=== PATIENT | female | born 2000 | race Two or more races ===

== ENCOUNTER 2024-10-04 15:59 | Emergency (ER) | payer MEDICAID, SELFPAY ==
[2024-10-04 16:00] VITALS: BMI 31.1
[2024-10-04 16:24] VITALS: BP 105/71; PULSE 100; RESP 19; TEMP 37.4; O2SAT 100
--- NOTE | 2024-10-04 16:26 | XR_ITS ---
Examination: Abdomen sonogram, Limited Date and time of exam: October 04, 2024 1711 hours INDICATIONS: Epigastric pain and vomiting today Technique: Real-time stallings scale transabdominal sonographic images of the upper abdomen obtained. Findings: 13 mm gallstone. Normal gallbladder wall. Normal common bile duct 0.4 cm. Pancreatic head 2.8 cm Liver 16.0 cm fatty infiltration smooth contour Normal hepatopedal portal venous flow Patent IVC IMPRESSION: Cholelithiasis, negative for cholecystitis
--- NOTE | 2024-10-04 16:27 | EDRME_ITS ---
Rapid Medical Screening Exam [facility] Arrival date/time: 10/04/24 15:59 24-year-old female with no known medical history presents to the emergency room with a chief complaint of vomiting, nausea, epigastric and right upper quadrant abdominal pain x 1 day I have greeted and performed a focused initial assessment of this patient. A comprehensive ED assessment and evaluation of the patient, analysis of all test results, and completion of the medical decision making process will be conducted by additional ED providers. Chief Complaint: Abdominal Pain Vital signs: Vital Signs Temperature 99.4 F 10/04/24 16:24 Pulse Rate 100 10/04/24 16:24 Respiratory Rate 19 10/04/24 16:24 Blood Pressure 105/71 10/04/24 16:24 Pulse Oximetry (%) 100 10/04/24 16:24 Oxygen Delivery Method Room Air 10/04/24 16:24 Vital signs reviewed by provider: Yes
[2024-10-04] MEDS: ONDANSETRON ODT 4 MG TABRAP PO (16:42)
[2024-10-04 17:20] LABS: Basophils # (Auto) 0.0 Thou/mm3 (0.0-0.2); Basophils % (Auto) 0 % (0-2.5); Eosinophils # (Auto) 0.1 Thou/mm3 (0.0-0.5); Eosinophils % (Auto) 1 % (0-10); Hematocrit 41.1 % (36.0-46.0); Hemoglobin 13.9 g/dL (12.0-16.0); Immature Granulocytes Auto 0.01 Thou/mm3 (0.00-0.00); Lymphocytes # (Auto) 0.5 Thou/mm3 (1.0-4.8); Lymphocytes % (Auto) 6 % (10-50); Mean Corpuscular HGB Conc 33.8 g/dl (31.0-37.0); Mean Corpuscular Hemoglobin 30.4 pg (25.0-35.0); Mean Corpuscular Volume 90 fL (80-100); Monocytes # (Auto) 0.5 Thou/mm3 (0.0-0.8); Monocytes % (Auto) 6 % (0-12); Neutrophils # (Auto) 7.0 Thou/mm3 (1.8-7.7); Neutrophils % (Auto) 86 % (37-80); Nucleated Red Blood Cell # 0.00 Thou/mm3 (0.00-0.00); Nucleated Red Blood Cell % 0 /100 WBC (0); Platelet Count 244 Thou/mm3 (140-440); RDW Standard Deviation 41.2 fL (36.4-46.3); Red Blood Count 4.57 Miln/mm3 (4.00-5.20); White Blood Count 8.2 Thou/mm3 (3.6-11.0)
[2024-10-04 17:36] LABS: Alanine Aminotransferase 35 U/L (10-49); Albumin, Serum 4.8 gm/dL (3.5-5.0); Albumin/Globulin Ratio 1.7 (1.2-2.2); Alkaline Phosphatase 81 U/L (46-116); Anion Gap 9 (7-16); Aspartate Amino Transferase 29 U/L (0-34); BUN/Creatinine Ratio 14 Ratio (12-20); Bilirubin,Total 0.9 mg/dL (0.3-1.2); Blood Urea Nitrogen 11 mg/dL (9-23); Calcium 9.2 mg/dL (8.3-10.6); Calcium (Corrected) 9.2 mg/dL (8.5-10.1); Carbon Dioxide 24.1 mMol/L (20.0-31.0); Chloride 108 mMol/L (98-107); Creatinine (Component) 0.8 mg/dL (0.6-1.3); Estimated Creatinine Clearance 102.5 mL/min (>60); Globulin 2.9 gm/dL (2.3-3.5); Glucose 112 mg/dL (74-106); Lipase 28 U/L (12-53); Osmolality,Calculated 281 (275-295); Potassium 3.6 mMol/L (3.4-5.1); Sodium 141 mMol/L (136-145); Total Protein 7.7 gm/dL (5.7-8.2); eGFR > 60 See Note
--- NOTE | 2024-10-04 17:43 | EDNOTE_ITS ---
ED Abdominal Pain RME/HPI General Chief Complaint: Abdominal Pain Stated complaint: ABDOMINAL PAIN WITH N/V Time seen by provider: 10/04/24 17:39 Arrival date/time: 10/04/24 15:59 Limitations: no limitations RME / HPI RME / HPI narrative: 10/04/24 15:59 24-year-old female with no known medical history presents to the emergency room with a chief complaint of vomiting, nausea, epigastric and right upper quadrant abdominal pain x 1 day She has no fever or chills. No urinary complaints. No chronic medical disease. Related Data Previous Rx's ?Medication ?Instructions ?Recorded hydrocodone 5 mg-acetaminophen 325 1 tab PO TID PRN pa in #10 tabs 10/04/24 mg tablet ondansetron HCl 4 mg tablet 4 mg PO QDAY PRN nausea an d 10/04/24 vomiting 3 days #10 tabs Allergies Allergy/AdvReac Type Severity Reaction Status Date / Time No Known Allergies Allergy Verified 10/04/24 16:03 Review of Systems Review of Systems Systems Reviewed: All systems reviewed, normal except as documented ED Exam General Limitations: Present no limitations General appearance: Present alert and in no apparent distress Head Head exam: Present atraumatic Eye Eye exam: Present normal appearance, PERRL and EOMI ENT ENT exam: Present normal exam, normal oropharynx and mucous membranes moist Neck Neck exam: Present normal inspection, full ROM and trachea midline Chest Chest inspection: Present normal inspection and symmetric chest wall rise Respiratory Respiratory exam: Present normal lung sounds bilaterally Cardiovascular Cardiovascular exam: Present regular rate, normal rhythm and normal heart sounds Abdominal Exam Abdominal exam: Present soft and normal bowel sounds Extremities Exam Extremities exam: Present normal inspection and full ROM Back Exam Back exam: Present normal inspection and full ROM Neurological Exam Neurological exam: Present alert, oriented X3 and CN II-XII intact Psychiatric Psychiatric exam: Present normal affect and normal mood Skin Skin exam: Present warm, dry, intact and normal color Course Quality Measures none Orders Category Date Time Status US gall bladder Stat Exams 10/04/24 16:26 Completed CBC Stat Lab 10/04/24 16:46 Completed CMP [Comprehensive Metabolic Panel] Stat Lab 10/04/24 16:46 Completed HCG Qualitative,Urine Stat Lab 10/04/24 18:07 Completed Lipase Stat Lab 10/04/24 16:46 Completed UA [Urinalysis] Stat Lab 10/04/24 18:07 Completed Urine Culture Stat Lab 10/04/24 18:07 Received Metoclopramide Inj [Reglan Inj] Med 10/04/24 19:17 Discontinued 10 mg IM X1 ONE Ondansetron Odt [Zofran Odt] Med 10/04/24 16:26 Discontinued 4 mg PO X1 ONE Ondansetron Odt [Zofran Odt] Med 10/04/24 17:41 Discontinued 4 mg PO X1 ONE Vital Signs Vital signs: Vital Signs Temperature 99.4 F 10/04/24 16:24 Pulse Rate 100 10/04/24 16:24 Respiratory Rate 19 10/04/24 16:24 Blood Pressure 105/71 10/04/24 16:24 Pulse Oximetry (%) 100 10/04/24 16:24 Oxygen Delivery Method Room Air 10/04/24 16:24 Abdominal Pain MDM MDM Narrative MDM Narrative:: 24-year-old female with no known medical history presents to the emergency room with a chief complaint of vomiting, nausea, epigastric and right upper quadrant abdominal pain x 1 day She has no fever or chills. No urinary complaints. No chronic medical disease. Her workup is unremarked with exception microscopic hematuria. She denies any urinary frequency or dysuria. She is not under menstrual cycle. Her ultrasound reveals cholelithiasis without cholecystitis. Her abdominal pain is improved. I do believe she be discharged for outpatient follow-up. She will be referred to general surgery. She is advised to obtain a primary care provider for follow-up. We discussed return precautions in detail. All questions and concerns were answered at this time. She is invited to return as needed for any worsening emergent changes. Patient data External records reviewed:: None Clinical information provided by:: patient Social determinants that could affect healthcare access:: none Patient has the following chronic illnesses:: n/a How is presenting disease/condition affected by chronic disease/condition?: no chronic disease Evaluation data The following diagnostics were reviewed and interpreted by me:: lab results (Microscopic hematuria) and radiology exam(s) (Cholelithiasis without cholecystitis) Lab and/or radiology exams considered but not ordered:: n/a Interpretation Summary: Cholelithiasis Medications / Prescriptions Medications or Prescriptions considered but not ordered:: n/a Medication administrations:: Medication Administration History Discontinued Medications Metoclopramide HCl (Metoclopramide Inj 5 Mg/Ml Vial 2 Ml) 10 mg IM X1 ONE; Protocol Stop: 10/04/24 19:18 Last Admin: 10/04/24 19:21 Dose: 10 mg Documented By: EF Ondansetron HCl (Ondansetron Odt 4 Mg Tabrap) 4 mg PO X1 ONE; Protocol Stop: 10/04/24 16:27 Last Admin: 10/04/24 16:42 Dose: 4 mg Documented By: Ondansetron HCl (Ondansetron Odt 4 Mg Tabrap) 4 mg PO X1 ONE; Protocol Stop: 10/04/24 17:42 Last Admin: 10/04/24 19:17 Dose: Not Given Documented By: EF Non-Admin Reason: Cancelled by Provider See above Consultations Consultation(s) initiated? (list below): No Diagnosis Differential diagnosis abdominal pain: abdominal pain, acute appendicitis, calculus of kidney and constipation Most likely diagnosis given after review of the tests above:: Cholelithiasis Admission Indicated Admission indicated?: not indicated Admission Request Was there a request for admission?: No Disposition Plan Disposition Plan: Discharge Discharge Attestation Discharge Attestation: The patient and all family members were given an opportunity to ask questions and understood the discharge instructions. Discharge instructions specifically effects, indications for sooner follow up or return to the emergency department, and the expected course of current diagnosis. Patient condition: Stable Discharge Plan Plan Patient Disposition: Home w/HOME HEALTH Patient condition on transfer: Stable Prescriptions/Referrals Prescriptions/Med Rec: New hydrocodone-acetaminophen 5-325 mg tablet 1 tab PO TID MDD 3 PRN (Reason: pain) Qty: 10 0RF ondansetron HCl 4 mg tablet 4 mg PO QDAY PRN (Reason: nausea and vomiting) 3 Days Qty: 10 0RF Referrals: No Primary/Family,Physician [Primary Care Provider] - In 1 week Pee Stover MD [Physician] - In 1 week Problem List Clinical Impression: Cholelithiasis Patient/Caregiver Discharge Instructions Education Materials: Discharge Instructions for ... Additional Instructions: - Maintain oral hydration. Use provide medications as prescribed. - Follow-up with your primary doctor soon as possible. -Contact general surgery to schedule follow-up appointment. - Return as needed for any worsening or emergent changes. Print Language: Upper Sorbian Stand Alone Forms: Tamara Award Info., Patient Portal Info Letter
--- NOTE | 2024-10-04 18:19 | PC.NURSE ---
PATIENT UP AT TRIAGE COUNTER ASKING TO SIGN OR AMA, PATIENT AND MADE AWARE OF ALL RISKS UP TO AND INCLUDING . PATIENT ENCOURAGED TO RETURN TO ED IF SYMPTOMS RETURN.
[2024-10-04 18:20] LABS: Collection Type, Urine Clean Catch
[2024-10-04 18:29] LABS: HCG Qualitative,Urine Negative
[2024-10-04 18:40] LABS: Bilirubin,Urine Negative (Negative); Blood,Urine 2+ (Negative); Clarity,Urine Clear (Clear/Hazy); Color,Urine Yellow (Lt Yel-Yel); Glucose, Urine Negative (Negative); Ketones,Urine Negative (Negative); Leukocyte Esterase,Urine Negative (Negative); Nitrite,Urine Negative (Negative); PH,Urine 6.0 (5.0-7.0); Protein,Urine Trace (Neg - Trace); RBC,Urine 21 /hpf (0-3); Specific Gravity,Urine 1.032 (1.001-1.035); Squamous Epithelial Cell,Urine 3 /hpf (0-5); Urobilinogen,Urine Negative mg/dL (0.0-1.0); WBC,Urine 4 /hpf (0-5)
[2024-10-04] MEDS: METOCLOPRAMIDE INJ 5 MG/ML VIAL 2 ML 10 MG IM (19:21)
[2024-10-04 20:08] VITALS: BP 110/68; PULSE 102; RESP 16; TEMP 37.4; O2SAT 98
== END 2024-10-04 20:09 | disposition home or self-care (01) ==
PROVIDERS: Nurse Practitioner Family; Emergency Provider Family Medicine
DX: K80.20 Calculus of gallbladder without cholecystitis without obstruction (principal)
CPT/HCPCS: 36415; 76705; 80053; 81001; 81025; 83690; 85025; 87077; 87086; 87186; 96372; 99284; J2765; Q0162